=== PATIENT | male | born 1970 | race African-American/Black ===

== ENCOUNTER 2021-01-13 08:43 | Emergency (ER) | payer OTHER ==
[~2021-01-13] VITALS: Ht 162.6 cm; Wt 69.0 kg
[2021-01-13] MEDS ORDERED: DIPH25TA62 MT (09:43)
[2021-01-13 10:08] VITALS: BP 150/70
== END 2021-01-13 10:09 | disposition home or self-care (01) ==
LOC: ER 08:43
DX: Z13.9 Encounter for screening, unspecified (principal); F12.10 Cannabis abuse, uncomplicated; Z88.5 Allergy status to narcotic agent
CPT/HCPCS: 99283